=== PATIENT | female | born 1950 | race Caucasian/White ===

== ENCOUNTER 2024-08-31 15:01 | Emergency (ER) | payer OTHER ==
[~2024-08-31] VITALS: Wt 79.5 kg
[2024-08-31] MEDS ORDERED: EPINEPHrine Hydrochloride 1 MG,IV 1 EA in SODIUM CHLORIDE 0.9% 250 ML IV SCH (15:25)
[2024-08-31] MEDS ORDERED: PROPOFOL 50 ML IV SCH (15:45)
[2024-08-31] MEDS ORDERED: SODIUM CHLORIDE 0.9% 1,000 ML IV ONE (15:45)
[2024-08-31] MEDS ORDERED: CALCIUM GLUCONATE 1 GM/10 ML VIAL ONE (15:47)
[2024-08-31 15:52] LABS: ABG O2 SATURATION 99.7 % (94.0-98.0)
[2024-08-31 15:53] LABS: ABG BASE EXCESS -7.1 mmol/L (-2.0-3.0)
[2024-08-31 15:56] LABS: ARTERIAL BLOOD GAS PH 7.228 (7.350-7.450); ARTERIAL BLOOD GAS PO2 524.2 mmHg (83.0-108.0)
[2024-08-31 15:58] LABS: HEMATOCRIT 44.2 % (37.0-47.0); MEAN CELL VOLUME 91.5 fl (81.0-99.0); MEAN CORPUSCULAR HGB 29.6 pg (27.0-31.0); MEAN CORPUSCULAR HGB CONC 32.4 g/dl (33.0-37.0); MEAN PLATELET VOLUME 9.7 fl (9.6-12.3); NUCLEATED RED BLOOD CELL 0.1 % (0.0-0.0); PLATELET COUNT AUTOMATED 293 10*3/uL (130-400); RED BLOOD COUNT 4.83 10*6/uL (4.10-5.10); RED CELL DISTRI WIDTH 13.2 % (0-14.5); WHITE BLOOD COUNT 14.8 10*3/uL (4.8-10.8)
[2024-08-31 16:08] LABS: MANUAL DIFF REFLEX YES
[2024-08-31 16:40] LABS: POTASSIUM 3.1 mmol/L (3.4-5.1)
[2024-08-31] MEDS ORDERED: PROPOFOL 100 ML IV ONE (16:47)
[2024-08-31] MEDS ORDERED: SODIUM CHLORIDE 0.9% 500 ML IV ONE (16:50)
[2024-08-31 17:00] LABS: BASOPHILS 1 % (0-1); TOTAL CELLS COUNTED 100 #CELLS
[2024-08-31 17:01] LABS: PLATELET SUFFICIENCY NORMAL (NORMAL); STOMATOCYTE FEW
[2024-08-31 17:02] LABS: ROULEAUX SLIGHT
[2024-08-31 17:03] LABS: MICROCYTOSIS SLIGHT
[2024-09-04] MEDS ORDERED: MAGNESIUM SULFATE 2 GM/50 ML IVB IV ONE (08:44)
[2024-09-04] MEDS ORDERED: CALCIUM CHLORIDE 1 GM/10 ML SYR IV ONE (08:44)
[2024-09-04] MEDS ORDERED: Lactated Ringer's Solution 1,000 ML BAG IV ONE (08:44)
[2024-09-04] MEDS ORDERED: SODIUM BICARBONATE 50 MEQ/50 ML SYR IV ONE (08:44)
[2024-09-04] MEDS ORDERED: EPINEPHrine Hydrochloride 1 MG/10 ML SYR IV ONE (08:44)
[2024-09-04] MEDS ORDERED: Amiodarone Hydrochloride 150 MG/3 ML VIAL IV ONE (08:44)
== END 2024-08-31 17:28 | disposition short-term general hospital (02) ==
LOC: ED 15:01
PROVIDERS: Student in an Organized Health Care Education/Training Program
DX: I46.9 Cardiac arrest, cause unspecified (principal)